=== PATIENT | female | born 1990 | race Caucasian/White ===

== ENCOUNTER 2018-07-20 17:24 | Emergency (ER) | payer MEDICAID, SELFPAY ==
[2018-07-20 17:26] VITALS: BP 124/77; PULSE 77; RESP 16; TEMP 36.4; O2SAT 99; BMI 22.0
[2018-07-20 18:27] LABS: Color, Urine Yellow (Yellow); Glucose, Dipstick Normal (Normal); Ketone-Dipstick Negative (Negative); Leukocyte Esterase-Dipstick 25 /ul (Negative); Nitrite-Dipstick Negative (Negative); Occult Blood-Urine 250 /ul (Negative); Protein-Dipstick 15 mg/dl (Negative); Urine Bilirubin Dipstick Negative (Negative); Urine Clarity Clear (Clear); Urine Urobilinogen 4 mg/dl (Normal); Urine pH 6.5 (5.0 - 8.0)
[2018-07-20 18:30] LABS: Internal QC Validated? YES +Cl - CLEAR BKGD; Pregnancy, Urine Negative Negative
--- NOTE | 2018-07-20 19:55 | ED.VISSUMM ---
- ER Visit Summary Date of Service: 07/20/18 Chief Complaint: Vaginal bleeding History of Present Illness: The patient is a 27 F finished her menstrual cycle about 4 days ago, developed vaginal bleeding about 3 days ago, she noticed a few clots this morning but has not had any significant bleeding so far today. She does not feel lightheaded. She has no back pain, no recent trauma. She has no vaginal discharge she has mild pelvic pain that is intermittent and crampy. She has a history of ovarian cyst. She had a tubal ligation. Physical Examination: Not appear in acute distress. Moist mucous membranes, no obvious facial deformity No C-spine tenderness supple neck. Regular rate and rhythm without any obvious murmurs Clear lungs bilaterally speaking in full sentences without any obvious respiratory distress Abdomen soft currently no suprapubic pain and nontender throughout no guarding or rebound Pelvic exam shows signs of all the bleeding, no clots ox is closed, obvious parous, after observing for about 10-15 seconds there is no active bleeding. There is no pulling. Moves all extremities without any difficulty or pain. Skin does not show any obvious rashes or lesions, no trauma. Alert oriented ?3 with no gross focal deficit Emergency Department Course and Treatment: Urinalysis unremarkable, GC chlamydia are pending. HCG was negative. I do not believe the patient has to be started on progesterone or tranexamic acid she has very minimal bleeding without any signs of anemia. She has an appointment in 5 days with her [facility] doctor. I did mention that her bleeding worsen she needs to return. Discharge stable condition Impression: Abnormal vaginal bleeding This note was generated with [employer] ([employer]) dictation software. It may contain incorrect words, spelling, and punctuation that were not noted in review of the chart prior to signing ED Disposition - Plan for ED Patient: Disposition: Home or Assisted Living Chief Complaint: Vag Bleeding Instructions: ED Bleed Irregular Vaginal Additional Instructions: Follow-up with your [facility] as scheduled If your bleeding is worse, we feel lightheaded or weak return to the emergency department right away
--- NOTE | 2018-07-20 19:59 | ED.DCSUM_ITS ---
- ER Visit Summary Date of Service: 07/20/18 Chief Complaint: Vaginal bleeding History of Present Illness: The patient is a 27 F finished her menstrual cycle about 4 days ago, developed vaginal bleeding about 3 days ago, she noticed a few clots this morning but has not had any significant bleeding so far today. She does not feel lightheaded. She has no back pain, no recent trauma. She has no vaginal discharge she has mild pelvic pain that is intermittent and crampy. She has a history of ovarian cyst. She had a tubal ligation. Physical Examination: Not appear in acute distress. Moist mucous membranes, no obvious facial deformity No C-spine tenderness supple neck. Regular rate and rhythm without any obvious murmurs Clear lungs bilaterally speaking in full sentences without any obvious respiratory distress Abdomen soft currently no suprapubic pain and nontender throughout no guarding or rebound Pelvic exam shows signs of all the bleeding, no clots ox is closed, obvious parous, after observing for about 10-15 seconds there is no active bleeding. There is no pulling. Moves all extremities without any difficulty or pain. Skin does not show any obvious rashes or lesions, no trauma. Alert oriented ?3 with no gross focal deficit Emergency Department Course and Treatment: Urinalysis unremarkable, GC chlamydia are pending. HCG was negative. I do not believe the patient has to be started on progesterone or tranexamic acid she has very minimal bleeding without any signs of anemia. She has an appointment in 5 days with her [facility] doctor. I did mention that her bleeding worsen she needs to return. Discharge stable condition Impression: Abnormal vaginal bleeding This note was generated with [employer] dictation software. It may contain incorrect words, spelling, and punctuation that were not noted in review of the chart prior to signing ED Disposition - Plan for ED Patient: Disposition: Home or Assisted Living Chief Complaint: Vag Bleeding Instructions: ED Bleed Irregular Vaginal Additional Instructions: Follow-up with your [facility] as scheduled If your bleeding is worse, we feel lightheaded or weak return to the emergency department right away
[2018-07-20 20:08] LABS: Chlamydia Trachomatis by PCR Negative (Negative); Neisserai gonorrhoeae by PCR Negative (Negative); Probe Check PASS; Sample Adequacy Control PASS; Specimen Processing Control PASS
[2018-07-20 20:09] VITALS: BP 109/77; PULSE 77; RESP 17; O2SAT 98
--- NOTE | 2018-07-20 20:10 | ED.RN ---
DISCHARGE INSTRUCTIONS GIVEN TO AND REVIEWED WITH PATIENT, PATIENT DENIES QUESTIONS OR CONCERNS AND VOICES UNDERSTANDING OF DISCHARGE INSTRUCTIONS. PT AMBULATES OUT OF ROOM WITHOUT DIFFICULTY.
== END 2018-07-20 20:10 | disposition home or self-care (01) ==
PROVIDERS: Emergency Provider Emergency Medicine; Family Provider Family Medicine; PCP Family Medicine
DX: N93.9 Abnormal uterine and vaginal bleeding, unspecified (principal); Z72.0 Tobacco use; Z79.899 Other long term (current) drug therapy; Z98.51 Tubal ligation status
CPT/HCPCS: 81002; 81025; 87491; 87591; 99282

== ENCOUNTER 2020-01-09 10:51 | Emergency (ER) | payer MEDICAID, SELFPAY ==
[2020-01-09 10:52] VITALS: BP 106/82; PULSE 89; RESP 16; TEMP 36.4; O2SAT 100; BMI 21.0
--- NOTE | 2020-01-09 11:02 | RAD_ITS ---
STUDY: X-RAY - UNILATERAL RIBS ( RIGHT ) WITH CHEST REASON FOR EXAM: Female, 29 years old. Fall last evening ; pain lower anterior ribs TECHNIQUE - RIBS: 4 view(s) of the ribs. TECHNIQUE - CHEST: Frontal view COMPARISON: None. FINDINGS - RIBS: Normal visualized ribs without a demonstrated fracture. FINDINGS - CHEST: The lungs are clear and expanded. There is no demonstrated pleural abnormality. Normal size heart. Normal mediastinum and raj. Normal visualized pulmonary arteries. Normal visualized aortic arch and descending thoracic aorta. Normal visualized thoracic spine. Normal visualized ribs, clavicles, and shoulders. There is no demonstrated abnormality of the visualized soft tissue structures of the upper abdomen. RAD/Ribs Uni Min 3V w/PA Chest IMPRESSION: RIBS: Normal x-ray examination of the ribs. CHEST: Normal x-ray examination of the chest. Electronically Signed: Philip El DO at 11:43 EDT Tel [phone], Service support ,
--- NOTE | 2020-01-09 11:04 | ED.VIS.GEN ---
History of Present Illness Chief Complaint: Lower Extremity Injury Narrative: 29-year-old female rolled her right ankle when she slipped getting out of the bath tub. She did not hit her head or lose consciousness. She struck her right ribs. Minimal pain there. No shortness of breath. No headache. Onset sudden. Severity mild. Past Medical History - Allergies and Home Meds Allergies/Adverse Reactions: Allergies No Known Allergies Allergy (Verified 01/09/20 10:52) Primary Care Physician: Christoph Asencio MD [Primary Care Provider] - Smoking Status: Current every day smoker Review of Systems General: Denies: Chills, Fever, Sweats Eyes: Denies: Visual changes - bilaterally, Diplopia ENT: Denies: Rhinorrhea, Sore throat Cardiovascular: Denies: Chest pain, Palpitations Respiratory: Reports: - - right rib pain. Denies: Dyspnea, Cough, Dyspnea on exertion Gastrointestinal: Denies: Abdominal pain, Nausea, Vomiting, Diarrhea, Melena, Hematochezia Genitourinary: Denies: Dysuria, Hematuria, Frequency Musculoskeletal: Reports: Extremity Pain, - - right ankle pain. Denies: Back pain Skin: Denies: Rash, Wounds Neurological: Denies: Headache, Weakness, Numbness Physical Exam Vital Signs/Narrative: Vital Signs Temp Pulse Resp BP Pulse Ox 01/09/20 10:52 97.5 F L 89 16 106/82 H 100 General: Well nourished, Well developed, No Acute Distress Head: Normocephalic, Atraumatic Eyes: Perrl, EOMI ENT: Moist mucous membranes, No rhinorrhea Neck: Supple, Nontender Cardiovascular: Regular rate, Regular rhythm, No murmurs Respiratory: No distress, CTA bilaterally, Chest nontender, Chest tenderness - mild ttp right lower ribs, skin intact. No crepitus Abdomen: Soft, Nontender, Nondistended, Normal bowel sounds Back: Nontender, Normal Inspection Extremities: Tenderness - right ankle lateral and anterior, skin intact, NVID, mild echymosis, No proximal fib tenderness. Skin: Normal color, No rash Neurological: Alert, Oriented x3, Cranial nerves II-XII grossly intact, Normal Strength, Normal Sensation Psychological: Normal affect, Normal Mood Diagnostic/Tx/Re-eval - Medical Decision Making X-rays of the right ribs with chest negative. Right ankle x-ray negative. No other injuries. Looks well. I feel she can safely be discharged home. Will follow-up if not improving. ED Disposition - Plan for ED Patient: Disposition: Home or Assisted Living Diagnosis: Sprain of ankle, right, Contusion of rib on right side Instructions: ED Sprain Ankle, ED Contusion Vs Minor Fx Rib Prescriptions: Naproxen [Naprosyn] 500 mg PO BID PRN #20 tablet Referrals: Christoph Asencio MD [Primary Care Provider] -
--- NOTE | 2020-01-09 11:15 | RAD_ITS ---
STUDY: X-RAY - RIGHT ANKLE REASON FOR EXAM: Female, 29 years old. Fall last evening; pain all around joint TECHNIQUE: 3 view(s) of the ankle. COMPARISON: None. FINDINGS: Normal visualized distal tibia and fibula. Normal medial and lateral malleoli. Normal tibiotalar articulation and ankle mortise. Normal visualized talus and calcaneus. The visualized subtalar, talonavicular, calcaneocuboid and tarsal articulations are normal. The soft tissue structures are unremarkable. RAD/Ankle min 3 Views IMPRESSION: Normal x-ray examination of the ankle. Electronically Signed: Philip El DO at 11:34 EDT Tel [phone], Service support ,
== END 2020-01-09 12:09 | disposition home or self-care (01) ==
PROVIDERS: Emergency Provider Emergency Medicine; PCP Family Medicine
DX: S93.401A Sprain of unspecified ligament of right ankle, initial encounter (principal); S20.211A Contusion of right front wall of thorax, initial encounter; W01.10XA Fall on same level from slipping, tripping and stumbling with subsequent striking against unspecified object, initial encounter; Y93.E1 Activity, personal bathing and showering; Y92.9 Unspecified place or not applicable; Y99.9 Unspecified external cause status; F17.200 Nicotine dependence, unspecified, uncomplicated
CPT/HCPCS: 71101; 73610; 99282

== ENCOUNTER 2020-03-26 14:15 | Emergency (ER) | payer MEDICAID, SELFPAY ==
[2020-03-26 14:17] VITALS: BP 135/87; PULSE 81; PULSE 84; RESP 14; RESP 17; TEMP 36.8; O2SAT 100; BMI 19.5
[2020-03-26] MEDS: Ondansetron ODT 4 MG Tablet PO (14:39)
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
--- NOTE | 2020-03-26 14:59 | ED.DCSUM_ITS ---
- ER Visit Summary Date of Service: 03/26/20 Chief Complaint: [] History of Present Illness: The patient is a 29 F [] Physical Examination: [] Test Results: [] Emergency Department Course and Treatment: [] Treatment Plan: [] Disposition: [] Impression: [] This note was generated with [employer] dictation software. It may contain incorrect words, spelling, and punctuation that were not noted in review of the chart prior to signing ED Disposition - Plan for ED Patient: Disposition: Home or Assisted Living Diagnosis: Closed head injury with concussion Prescriptions: Ondansetron [Zofran Odt] 4 mg PO Q8H PRN PRN #10 tab PRN Reason: Nausea Prescription Printed Referrals: Christoph Asencio MD [Primary Care Provider] - 3-5 Days
--- NOTE | 2020-03-26 15:24 | ED.RN ---
THIS RN TO BEDSIDE TO DISCHARGE PATIENT, ROOM WAS EMPTY, BELONGINGS WERE GONE, ASSUME LEFT PRIOR TO RECEIVING DISCHARGE INSTRUCTIONS.
== END 2020-03-26 15:25 | disposition home or self-care (01) ==
PROVIDERS: Emergency Provider Emergency Medicine; PCP Family Medicine
DX: S06.0X0A Concussion without loss of consciousness, initial encounter (principal); Y04.2XXA Assault by strike against or bumped into by another person, initial encounter; Y93.9 Activity, unspecified; Y92.9 Unspecified place or not applicable; Y99.9 Unspecified external cause status; F17.200 Nicotine dependence, unspecified, uncomplicated
CPT/HCPCS: 99283

== ENCOUNTER 2020-06-08 19:35 | Emergency (ER) | payer MEDICAID, SELFPAY ==
[2020-06-08 19:36] VITALS: BP 130/106; PULSE 83; RESP 19; TEMP 36.1; O2SAT 100; BMI 22.2
[2020-06-08] MEDS: Ondansetron ODT 4 MG Tablet 8 MG PO (20:16)
[2020-06-08 20:35] VITALS: BP 104/79; PULSE 90; RESP 16
[2020-06-08 21:06] VITALS: BP 98/72; PULSE 70; RESP 18; O2SAT 95
--- NOTE | 2020-06-08 21:21 | ED.DEP ---
ED Disposition - Plan for ED Patient: Instructions: ED Overdose Opiate Referrals: Christoph Asencio MD [Primary Care Provider] -
--- NOTE | 2020-06-08 21:26 | ED.VISSUMM ---
- ER Visit Summary Date of Service: 06/08/20 Chief Complaint: Heroin overdose History of Present Illness: The patient is a 29 F presenting after heroin overdose. Patient states she used methamphetamine and heroin today. She states this was the first time she has used heroin. She was found unresponsive. She was given Narcan prior to arrival. On arrival to the ED she was awake and alert. She denies suicidal ideation. She has nausea with no vomiting. Physical Examination: Vitals are stable. Patient is afebrile. Alert no acute distress. HEENT exam is unremarkable. Neck is supple. Lungs are clear and equal bilaterally. Heart is regular rate and rhythm. Abdomen is soft nontender nondistended. Extremities are unremarkable. Skin is warm and dry. No focal neurologic deficit. Remainder of exam is unremarkable. Emergency Department Course and Treatment: Patient was given Zofran with improvement. She was observed in the ED. Advised to follow-up with primary care physician. Advised return to the ED if worsening complaints. Disposition: Discharge home Impression: Unintentional heroin overdose This note was generated with [employer] dictation software. It may contain incorrect words, spelling, and punctuation that were not noted in review of the chart prior to signing ED Disposition - Plan for ED Patient: Instructions: ED Overdose Opiate Referrals: Christoph Asencio MD [Primary Care Provider] -
[2020-06-08 21:35] VITALS: BP 100/67; PULSE 71; RESP 18; O2SAT 98
== END 2020-06-08 21:36 | disposition home or self-care (01) ==
LOC: ED 19:52
PROVIDERS: Emergency Provider Emergency Medicine; PCP Family Medicine
DX: T40.1X1A Poisoning by heroin, accidental (unintentional), initial encounter (principal); R11.0 Nausea; Y92.9 Unspecified place or not applicable; Z72.0 Tobacco use
CPT/HCPCS: 99284

== ENCOUNTER 2020-07-11 14:19 | Emergency (ER) | payer MEDICAID, SELFPAY ==
[2020-07-11 14:20] VITALS: BP 125/84; PULSE 101; RESP 18; TEMP 36.4; O2SAT 100; BMI 21.8
== END 2020-07-11 15:00 | disposition left against medical advice (07) ==
PROVIDERS: Emergency Provider Emergency Medicine; PCP Family Medicine
DX: R69 Illness, unspecified (principal); Z53.21 Procedure and treatment not carried out due to patient leaving prior to being seen by health care provider

== ENCOUNTER 2020-08-03 16:42 | Emergency (ER) | payer MEDICAID, SELFPAY ==
[2020-08-03 16:43] VITALS: BP 122/73; PULSE 108; RESP 18; TEMP 36.2; O2SAT 95; BMI 21.7
[2020-08-03] MEDS: 0.9% Normal Saline 1,000 ML 1000 ML IV (18:18)
[2020-08-03] MEDS: Ondansetron 4 MG/2 ML Vial IV (18:19)
[2020-08-03] MEDS: LORazepam 2 MG/ML Syringe 1 MG IV (18:19)
[2020-08-03 18:45] VITALS: RESP 17
[2020-08-03 18:50] LABS: Hematocrit 37.6 % (37-47); Hemoglobin 13.5 g/dL (12.0-15.0); Mean Corp Hgb Conc 35.9 g/dL (32-36); Mean Corpuscular Hgb 30.5 pg (27.0-32.0); Mean Corpuscular Volume 85.1 fL (81-99); Mean Platelet Vol. 10.9 fl (6.2-12.0); Platelet Count 274 K/mm3 (150-450); RBC Distribution Width CV 13.2 % (11.6-14.6); RBC Distribution Width SD 40.8 fl (35.1-43.9); Red Blood Count 4.42 M/mm3 (4.2-5.4); White Blood Count 10.4 K/mm3 (4.4-11.0)
[2020-08-03 18:58] LABS: Amphetamine Urine VISTA POSITIVE (<1000 ng/mL); Barbiturate Urine VISTA NEGATIVE (< 200 ng/mL); Benzodiazepine Urine VISTA NEGATIVE (< 200 ng/mL); Cocaine Urine VISTA NEGATIVE (< 300 ng/mL); Ecstacy Urine VISTA POSITIVE (< 500 ng/mL); Methadone Urine VISTA NEGATIVE (< 300 ng/mL); PCP Urine VISTA NEGATIVE (< 25 ng/mL); THC Urine VISTA NEGATIVE (< 50 ng/mL); Vista UDS pH Range 5
[2020-08-03 19:06] LABS: ALB/GLOB Ratio 1.2 RATIO (0.9-2.4); AST(SGOT) 17 U/L (15-37); Alanine Aminotransfer ALT/SGPT 18 U/L (13-56); Albumin, Serum 4.4 g/dL (3.2-5.0); Alkaline Phosphatase 53 U/L (45-117); Anion Gap 9 (5-15); BUN 15 mg/dL (7-18); BUN/Creat Ratio 23.7 RATIO (10-20); Calcium,Total 9.5 mg/dL (8.5-10.1); Chloride 106 mmol/L (98-107); Creatinine, Serum 0.63 mg/dL (0.55-1.02); EST Glomerular Filtration Rate 116 mL/min (>60); Est Glom Filt Rate - Afr Amer 140 mL/min (>60); Estimated Creatinine Clearance 102.33 ml/min; Globulin 3.7 g/dL (2.2-4.2); Glucose 78 mg/dL (74-106); Protein, Total 8.1 g/dL (6.4-8.2); Sodium Level 138 mmol/L (136-145)
[2020-08-03 19:13] LABS: Alcohol, Blood (Medical)-Serum < 3.0 mg/dL
--- NOTE | 2020-08-03 19:23 | ED.VISSUMM ---
- ER Visit Summary Date of Service: 08/03/20 Chief Complaint: [Requesting detox for possible opiate withdrawal] History of Present Illness: The patient is a 29 F [presents to the emergency department stating that she has been using methamphetamines and has been using heavily for the last 48 hours. Today she started having some nausea and vomiting and she was concerned that her meth had been adulterated with fentanyl or other opiates. Patient is scheduled to go to [facility] for substance detox. She was told to come here for possible treatment of opiate withdrawal before she went to their facility. Patient denies any alcohol use currently. She is a smoker. She normally injects the methamphetamines and states she has not slept in a couple of days. Denies any abdominal pain. She is had no fevers. She tells me she had Covid last May.] Physical Examination: [HEENT-PERRLA, EOMI. Cranial nerves II through XII grossly intact. TMs clear. Mucous membranes moist. No adenopathy. Cardiovascular-regular rate and rhythm without murmur or ectopy Lungs-clear to auscultation, chest wall stable without crepitus or subcu emphysema Abdomen-normoactive bowel sounds, soft, nontender, no rebound or rigidity, no peritoneal signs. Extremities-intact ?4, normal range of motion, normal pulses, atraumatic] Test Results: [CBC with differential showed a white count 10.4, hemoglobin 13, hematocrit 38, placed 274. Chemistries unremarkable. Alcohol was negative. Toxicology screen was positive for amphetamines and negative for opiates.] Emergency Department Course and Treatment: [Line established. Patient was given normal saline and given Ativan 1 mg IV as well as Zofran 4 mg IV. I had a long discussion with patient and explained to her that fentanyl may not show up on her toxicology screen and cannot completely rule out that she may have gotten an opiate and may be going through withdrawal from such. Patient is feeling much improved at this time and does not want to be admitted and states that she will follow-up with the [facility] tomorrow.] Treatment Plan: [Follow-up with [facility] tomorrow. Patient advised to avoid using further methamphetamines and opiates.] Disposition: [Discharged home in stable condition] Impression: [Illicit drug use of methamphetamines] This note was generated with [employer] software. It may contain incorrect words, spelling, and punctuation that were not noted in review of the chart prior to signing ED Disposition - Plan for ED Patient: Referrals: Christoph Asencio MD [Primary Care Provider] -
--- NOTE | 2020-08-03 19:26 | ED.DEP ---
ED Disposition - Plan for ED Patient: Instructions: ED Drug Abuse Referrals: Christoph Asencio MD [Primary Care Provider] - Additional Instructions: Follow up with Kaiden hector tomorrow
[2020-08-03 19:41] VITALS: BP 119/74; PULSE 97; RESP 18; O2SAT 97
== END 2020-08-03 19:43 | disposition home or self-care (01) ==
LOC: ED 17:51
PROVIDERS: Emergency Provider Emergency Medicine; PCP Family Medicine
DX: F15.90 Other stimulant use, unspecified, uncomplicated (principal); R11.2 Nausea with vomiting, unspecified; F17.200 Nicotine dependence, unspecified, uncomplicated; Z79.899 Other long term (current) drug therapy
CPT/HCPCS: 80053; 80307; 80320; 85027; 96374; 96375; 99285; J7030; A4216; G0480; J2405

== ENCOUNTER 2020-08-04 13:45 | Emergency (ER) | payer MEDICAID, SELFPAY ==
[2020-08-03 16:43] VITALS: BMI 21.7
[2020-08-04 13:46] VITALS: BP 100/61; PULSE 104; RESP 16; TEMP 36.6; O2SAT 98; BMI 21.0
--- NOTE | 2020-08-04 14:13 | ED.VIS.GEN ---
History of Present Illness Chief Complaint: Substance Abuse Narrative: This patient is a 29-year-old female. She presented for detox. She has a history of methamphetamine abuse. She was seen yesterday. She was referred to [facility]. She followed up with [facility] today. She was told they wanted her to be admitted to the detox unit because she is still under the influence of methamphetamine and cannot go to the residential unit yet. The patient states she feels antsy but otherwise has no complaints. She denies opioid abuse. He is on Suboxone. She otherwise has no complaints currently. Past Medical History - Allergies and Home Meds Allergies/Adverse Reactions: Allergies No Known Allergies Allergy (Verified 08/04/20 14:04) Primary Care Physician: Christoph Asencio MD [Primary Care Provider] - Past Medical History: - - Methamphetamine abuse Surgical History: no surgical history Smoking Status: Current every day smoker Review of Systems All systems negative except as indicated General: Denies: Fever Cardiovascular: Denies: Chest pain Respiratory: Denies: Dyspnea Gastrointestinal: Denies: Vomiting, Diarrhea Musculoskeletal: Denies: Myalgias, Arthralgias Skin: Denies: Rash Neurological: Denies: Headache Physical Exam Vital Signs/Narrative: Vital Signs Temp Pulse Resp BP Pulse Ox 08/04/20 13:46 98 F 104 H 16 100/61 98 Inital Vital Signs reviewed: Yes General: Well nourished Head: Normocephalic Eyes: EOMI ENT: Moist mucous membranes Neck: Supple Cardiovascular: Regular rhythm, Tachycardia Respiratory: No distress Abdomen: Soft Skin: Normal color Neurological: Alert Psychological: - - Psychomotor agitation Diagnostic/Tx/Re-eval - Medical Decision Making Patient does have psychomotor agitation. She is not psychotic. She answers all questions appropriately. At this time except for feeling antsy she has no complaints. She does not have an indication for hospitalization. She was advised to follow-up as an outpatient. Patient discharged. ED Disposition - Plan for ED Patient: Disposition: Home or Assisted Living Diagnosis: Methamphetamine abuse Instructions: Understanding Methamphetamine Abuse and Addiction Referrals: Christoph Asencio MD [Primary Care Provider] -
--- NOTE | 2020-08-04 14:59 | ED.RN ---
pt denies si, denies intent to use and overdose. verbalizes desire to rehab and sustain from meth use. pt does not meet critera for admission. pt and [facility] staff/pt support systems that is a bedside educated on rehab process. [facility] staff calling pt family for support and possible supervision for safety. pt continues to deny intent to harm self or overdose.
--- NOTE | 2020-08-04 15:14 | CM.ED ---
Social Work Consult: Substance Abuse Patient presents to [facility] ED seeking detox from meth. Treatment navigator, Caity from [facility] is with patient along with [facility] worker, Ann Ann. Caity and reported that patient needs to be admitted for detox. This rn social services and ED doctor explained to patient, and Caity that [facility] does not admit for meth as there is no detox per Dr. Christy and Dr. Ludwig at [facility] (this rn social services had placed phone call to [facility] to inquirer). now asking about possible pink slip for patient. Patient denies suicidal or homicidal ideations/thoughts/plans. Patient denies paranoia or visual/auditory hallucinations. Patient denies feeling unsafe to self. Patient reports to have a safe place to go, patient fathers home. Per patient has intake appointment with [facility] for Saturday. reports concerns that patient will make it to Saturday. reports that has been participating in risky behavior such as using too much. concern for patient possible overdose. Patient reports I am fine. Patient denies desire for inpatient stay. Patient reports wish to discharge to the community where patient can be watched by patient family until intake on Saturday. Patient states these two are concerned about me. This rn social services acknowledging with patient that it does appear that patient is making choices that are negatively impacting patient. Patient agrees to be making choices with negative consequences. This rn social services offered to assist with safe plan to discharge. reports to be able to call patient father and to work with patient on safety plan. Medical team updated on above. Social work to remain available if needed. Johnson EARL, SHWETA
== END 2020-08-04 15:14 | disposition home or self-care (01) ==
LOC: ED 14:30
PROVIDERS: Emergency Provider Emergency Medicine; PCP Family Medicine
DX: F15.10 Other stimulant abuse, uncomplicated (principal); R45.1 Restlessness and agitation; F17.200 Nicotine dependence, unspecified, uncomplicated; Z79.899 Other long term (current) drug therapy
CPT/HCPCS: 99282

== ENCOUNTER 2020-09-06 20:37 | Emergency (ER) | payer MEDICAID, SELFPAY ==
[2020-09-06 20:38] VITALS: BP 103/80; PULSE 80; RESP 16; TEMP 35.9; O2SAT 97; BMI 24.0
--- NOTE | 2020-09-06 21:05 | ED.DCSUM_ITS ---
- ER Visit Summary Date of Service: 09/06/20 Chief Complaint: Right forearm redness History of Present Illness: The patient is a 29 F who presents with right forearm redness that she noticed today. Patient states it is gradually getting worse. Patient states it started on her forearm and is now going up into her arm. Patient denies any fevers or chills. Patient denies any discharge or drainage. Patient states nothing makes it worse and nothing makes it better. Patient denies any chest pain or shortness of breath. Patient denies any nausea or vomiting. Patient does have a history of IV drug use and states the distal part of the redness was where she used to shoot up. Patient states she has been sober for 30 days. Physical Examination: Vital signs are stable. Patient is afebrile. Patient is in no acute distress. Heart was regular rate and rhythm. Lungs are clear and equal bilateral. Abdomen is soft. Bowel sounds are normal. There is no tenderness. Extremities are intact. There is no calf tenderness or edema. There is some erythema over the medial aspect of the right proximal forearm and distal arm. There is tenderness to palpation over this area. Radial pulses are equal bilaterally. There is full range of motion of the right upper extremity. There is no axillary adenopathy appreciated. Emergency Department Course and Treatment: Patient was given a dose of Keflex here. Patient was given a prescription for Keflex. Patient was instructed to follow-up with her primary care physician in 5 to 7 days. Patient understood and was agreeable with the plan. All questions were answered. Disposition: Discharge home Impression: Lymphangitis right forearm This note was generated with [email or web address] dictation software. It may contain incorrect words, spelling, and punctuation that were not noted in review of the chart prior to signing ED Disposition - Plan for ED Patient: Disposition: Home or Assisted Living Diagnosis: Lymphangitis of upper extremity Instructions: ED Lymphangitis Prescriptions: Cephalexin [Keflex] 500 mg PO Q6 #40 cap Prescription Printed Referrals: Christoph Asencio MD [Primary Care Provider] - 5-7 Days
[2020-09-06] MEDS: Cephalexin 500 MG Capsule PO (21:24)
== END 2020-09-06 21:30 | disposition home or self-care (01) ==
LOC: ED 21:18
PROVIDERS: Emergency Provider Emergency Medicine; PCP Family Medicine
DX: I89.1 Lymphangitis (principal); Z72.0 Tobacco use; Z79.899 Other long term (current) drug therapy
CPT/HCPCS: 99283

== ENCOUNTER 2020-11-01 18:41 | Emergency (ER) | payer MEDICAID, SELFPAY ==
[2020-11-01 18:43] VITALS: BP 114/64; PULSE 81; RESP 16; TEMP 36.6; O2SAT 98; BMI 23.8
--- NOTE | 2020-11-01 18:54 | ED.DCSUM_ITS ---
History of Present Illness Chief Complaint: Wound Informant: Patient Narrative: Patient has a piercing in her upper lip/face, states that it was put in a couple months ago and then subsequently she thinks she accidentally bumped it or something, because some pain on the mucosal side of the piercing and that grew over the backing. She has been having soreness with it, she went to urgent care to see if they could get it out, without local anesthesia they poked at it a lot with a needle, and now it is more swollen and painful and feeling worse. She denies any systemic symptoms or fevers. She presents wanting it cut out. She states it has been overgrown on the mucosal side for at least a month. Past Medical History - Allergies and Home Meds Allergies/Adverse Reactions: Allergies No Known Allergies Allergy (Verified 11/01/20 18:51) Primary Care Physician: Christoph Asencio MD [Primary Care Provider] - Past Medical History: None Surgical History: no surgical history Smoking Status: Current every day smoker Review of Systems General: Denies: Chills, Fever, Sweats ENT: Reports: - - oral mucosal soreness at site of piercing - see HPI Skin: Denies: Rash, Abscess, Wounds Neurological: Denies: Headache, Weakness, Numbness Physical Exam Vital Signs/Narrative: Vital Signs Temp Pulse Resp BP Pulse Ox 11/01/20 18:43 97.9 F 81 16 114/64 98 General: Well nourished, Well developed, No Acute Distress Head: Normocephalic, Atraumatic ENT: Moist mucous membranes, No rhinorrhea, - - Piercing right upper lip not involving the vermilion, simple stud. Externally no signs of any infection. On the mucosal side, there is a single pinpoint sized area of pus, over mildly tender mucosa that is completely grown over the backing of the piercing. No erythema. No other abnormalities. Skin: Normal color, No rash, No Trauma Neurological: Alert, Oriented x3, Cranial nerves II-XII grossly intact, Normal Strength, Normal Sensation, Normal Gait Psychological: Normal affect, Normal Mood Diagnostic/Tx/Re-eval - Medical Decision Making Patient was requesting, and consented to, foreign body removal after I described the procedure. This was not easy to remove as the internal piece was embedded into her oromucosa, but eventually we were able to get remove it without any complications. Although there may have been a tiny drop of discharge prior to making an incision, it was very superficial and I do not think the site of the foreign body itself is infected. Therefore, I think placing bacitracin externally and rinsing with saline internally will be enough to prevent infection. The patient states that when she went to urgent care prior, she thinks they prescribed an antibiotic. My personal advice was to rinse with salt water, keep an eye out for signs and symptoms of infection which we discussed, and fill and take the antibiotic if she develops any. She was comfortable with that plan. Procedures Procedure(s): Foreign body removal from face --the oral mucosal piece of the foreign body was embedded into the oral mucosa along with scar tissue. I anesthetized the oral mucosa with 1 cc of plain 1% lidocaine. The external face was not injected or manipulated. Initially I can feel the metal against my forceps and trying to pull it out through the oromucosa after removing the ball from the outside of the piercing, however I was not able to grab it or see it. Therefore the incision had to be deepened a little, it was only 0.5 cm and made with a #11 blade, then I was able to grab the shaft of the piercing with hemostats and remove it in its entirety from the oral mucosal side. There was good hemostasis after the patient rinse with ice water. No complications. P atient tolerated well. I did show her the piercing, she agrees that it is intact after removed. She wanted it discarded. ED Disposition - Plan for ED Patient: Disposition: Home or Assisted Living Diagnosis: Foreign body of face Instructions: ED Foreign Body, Soft Tissue (Removed) Referrals: Christoph Asencio MD [Primary Care Provider] - As Needed
[2020-11-01] MEDS: Lidocaine 1% (20 ml mdv) 20 ML Vial INFILT (20:24)
[2020-11-01 20:25] VITALS: BP 114/64; PULSE 81; RESP 16; TEMP 36.6; O2SAT 98
[2020-11-01 20:27] VITALS: BP 120/78; PULSE 72; RESP 16; O2SAT 99
== END 2020-11-01 20:27 | disposition home or self-care (01) ==
PROVIDERS: Emergency Provider Emergency Medicine; PCP Family Medicine
DX: S01.541A Puncture wound with foreign body of lip, initial encounter (principal); W26.8XXA Contact with other sharp object(s), not elsewhere classified, initial encounter; Y93.9 Activity, unspecified; Y92.9 Unspecified place or not applicable; Y99.9 Unspecified external cause status; F17.200 Nicotine dependence, unspecified, uncomplicated
CPT/HCPCS: 40804; 99283

== ENCOUNTER 2024-05-13 17:20 | Emergency (ER) | payer MEDICAID, SELFPAY ==
[2024-05-13 17:21] VITALS: BP 141/109; PULSE 99; RESP 18; TEMP 36.1; O2SAT 99; BMI 32.3
--- NOTE | 2024-05-13 18:05 | EDS_ITS ---
HPI History of Present Illness Chief Complaint: Lower Extremity Injury Detail of Chief Complaint: Injury to right foot and ankle Informant: patient Narrative Narrative: Patient presents to the emergency department complaint of injury to the right foot and ankle. Patient states that she was running across the street when she thinks maybe she stepped in a hole but she fell twisting her right foot and ankle. Having a hard time bearing weight now. Complains of swelling and bruising about the ankle. Denies any other injuries. [facility] Medical History (Updated 05/13/24 @ 18:[address] Rita Hollingsworth, DO) Depression Anxiety PTSD (post-traumatic stress disorder) Home Medications ?Medication ?Instructions ?Recorded ?Last Taken ?Type duloxetine 30 mg capsule,delayed 30 mg PO DAILY 06/08/20 08/03/20 History release Risperidone 1 mg PO DAILY 09/06/20 Unknown History cephalexin 500 mg capsule 500 mg PO Q6 #40 caps 09/06/20 Unknown Rx Allergy/AdvReac Type Severity Reaction Status Date / Time No Known Allergies Allergy Verified 05/13/24 17:21 Family History no significant family his Social History Smoking Status: Current every day smoker tobacco type: cigarettes ROS ROS ED Review of Systems ROS Unobtainable: other Constitutional Constitutional ED: Reports lethargy; Denies chills, fever(s), sweats or weight loss Eyes Eyes: Denies blurry vision, change in vision or diplopia ENT ENT ED: Denies rhinorrhea or sore throat Cardiovascular Cardiovascular: Denies chest pain, orthopnea or racing heartbeat Respiratory/Chest Respiratory/Chest: Denies cough, dyspnea, dyspnea on exertion, orthopnea or sputum Gastrointestinal Gastrointestinal: Denies abdominal pain, diarrhea, nausea or vomiting Genitourinary Genitourinary ED: Denies dysuria, hematuria or urinary frequency Musculoskeletal Musculoskeletal: Reports other Details: Right foot and ankle pain/injury ; Denies arthralgias, back pain, myalgias or neck pain Integumentary Denies abscess, Abrasions or rash Neurologic Neurologic: Denies headache(s) or weakness Psychiatric Psychiatric: Denies anxiety, depression or suicidal thoughts Endocrine Endocrinology: Denies polydipsia, polyphagia or polyuria Hematologic/Lymphatic Hematologic/Lymphatic: Denies easy bleeding, easy bruising or lymphadenopathy Allergic/Immunologic Allergic/Immunologic ED: Denies mouth swelling, tongue swelling or urticaria EXAM Physical Exam Const Vital Signs: 05/13/24 17:21 Temperature 96.9 F L Temperature Source Temporal Pulse Rate 99 Respiratory Rate 18 Blood Pressure 141/109 H Blood Pressure Mean 119 Pulse Ox 99 Oxygen Delivery Method Room Air Positive well nourished and well developed General Appearance ED: well developed and NAD HEENT Reports TM's clear and moist mucous membranes normocephalic and atraumatic; Negative for trauma or tenderness Tympanic Membrane ED: Yes TM's clear Eyes PERRL and EOMs intact bilaterally General Eye ED: Negative for pale conjunctiva or scleral icterus Neck no lymphadenopathy, supple and no JVD General: Negative for tenderness Chest Wall inspection of chest normal and palpation of chest normal Chest: Negative for tenderness Resp normal respiratory effort and clear to auscultation bilaterally Effort and Inspection: Negative for respiratory distress or pain with movement Auscultation: Negative for rhonchi, wheezes or diminished lung sounds Cardio regular rate, regular rhythm, S1 normal heart sound, S2 normal heart sound and no murmurs Peripheral Pulses: pulses 2+ throughout GI normal to inspection, nondistended, normoactive bowel sounds, soft to palpation, non-tender, non-distended and no masses Back/Spine no CVA tenderness and no thoracic nor lumbar tenderness Extremity Extremity Narrative: Right lower extremity-patient has ecchymosis and bruising about the lateral malleolus with soft tissue swelling noted. She has tenderness palpation. Patient also with ecchymosis and bruising and soft tissue swelling to the proximal dorsal portion of the foot. She has some mild tenderness over the base of the fifth metatarsal. She is neurovascular intact distally. No pain at the proximal fibular head General Extremety ED: Negative for edema General Extremity: Negative for edema Neuro oriented x3, CN's II-XII intact bilaterally, no sensory deficits noted and gait normal Sensorium / Orientation: awake, alert, oriented to person, oriented to place and oriented to time Motor Exam: strength 5/5 throughout and strength abnormal Psych mental status grossly normal Skin no rashes or lesions noted and no wounds MDM MDM MDM Narrative Medical decision making narrative: Patient presents with injury to her right foot and ankle. X-rays of the right foot and ankle obtained interpreted by myself as no evidence of fracture or dislocation. Patient will be given an air splint. She refused crutches. Advised to ice elevate the extremity. Advised to use ibuprofen or Tylenol for discomfort. Patient to follow-up with her primary care physician within next 7 to 10 days. Radiography Diagnostic Testing: Three-view x-rays of the right ankle obtained interpreted by myself as no evidence of fracture or dislocation. Three-view x-rays of the right foot obtained interpreted by myself as no evidence of fracture or dislocation. Discharge Plan Triage Chief Complaint: Lower Extremity Injury ED Provider: Rita Hollingsworth Dx/Rx/DC Orders Clinical Impression: Right ankle sprain, Right foot sprain Instructions: ED Foot Sprain, ED Ankle Sprain (Adult) Prescriptions: No Action duloxetine 30 MG capsule 30 mg PO DAILY cephalexin 500 MG capsule 500 mg PO Q6 Qty: 40 0RF Risperidone 1 MG tablet 1 mg PO DAILY Primary Care Provider: Christoph Asencio Referrals: Christoph Asencio MD [Primary Care Provider] - 5-7 Days Print Language: Montserratian Disposition Disposition: Home, Self Care
--- NOTE | 2024-05-13 18:08 | RAD_ITS ---
INDICATION: injury EXAMINATION/TECHNIQUE: X-RAY - RIGHT XR Ankle Min 3 Views 3 VIEWS COMPARISON: Imaging of the RIGHT foot on same date FINDINGS: SOFT TISSUES: There is lateral soft tissue swelling without evidence of soft tissue gas. No radiopaque foreign body. BONES/JOINTS: No acute fracture or subluxation.. Normal alignment. Preservation of the joint space.. No sclerotic or destructive changes observed. RAD/Ankle min 3 Views IMPRESSION: 1. Lateral soft tissue swelling consistent with soft tissue and ligamentous injury. No soft tissue gas. No radiopaque foreign bodies or avulsion deformity. 2. No evidence fracture, malalignment or focal bony or joint space abnormality. Electronically Signed: Paramjit Gamez MD at 18:54 EDT ,
--- NOTE | 2024-05-13 18:08 | RAD_ITS ---
INDICATION: injury EXAMINATION/TECHNIQUE: X-RAY - RIGHT XR Foot Min 3 Views 3 VIEWS COMPARISON: No relevant prior comparison study available FINDINGS: SOFT TISSUES: No soft tissue swelling or gas. No radiopaque foreign body. BONES/JOINTS: No acute fracture or subluxation.. Normal alignment. Preservation of the joint space.. No sclerotic or destructive changes observed. RAD/Foot min 3 Views IMPRESSION: 1. No evidence fracture, malalignment or focal bony or joint space abnormality. Electronically Signed: Paramjit Gamez MD at 18:53 EDT ,
== END 2024-05-13 18:46 | disposition home or self-care (01) ==
PROVIDERS: Emergency Provider Emergency Medicine; PCP Family Medicine; Visit Provider Emergency Medicine
DX: S93.401A Sprain of unspecified ligament of right ankle, initial encounter (principal); F17.210 Nicotine dependence, cigarettes, uncomplicated; X50.1XXA Overexertion from prolonged static or awkward postures, initial encounter; Y93.02 Activity, running; Y92.410 Unspecified street and highway as the place of occurrence of the external cause; F41.9 Anxiety disorder, unspecified; F32.A Depression, unspecified; F43.10 Post-traumatic stress disorder, unspecified; Z79.899 Other long term (current) drug therapy
CPT/HCPCS: 73610; 73630; 99282